=== PATIENT | male | born 1970 | race Caucasian/White ===

== ENCOUNTER 2017-12-05 18:59 | Emergency (ER) | payer SELFPAY ==
[~2017-12-05] VITALS: Ht 172.7 cm; Wt 125.2 kg
[~2017-12-05 18:59] MED LIST: ALBU18HF; ATEN50TA; INSU100V8; LISI40TA; METF10002
[2017-12-05] MEDS ORDERED: ONDANSETRON PF 4 MG/2 ML VIAL. IV ONE (19:15)
[2017-12-05] MEDS ORDERED: IV NORMAL SALINE 1,000ML 1,000 ML IV ONE ×2 (19:15→21:00)
--- NOTE | 2017-12-05 19:21 | PHYS DOC ---
Past History Past Medical History: Asthma, Diabetes, Hypertension Past Surgical History: Cholecystectomy, Other Smoking: Non-smoker Alcohol Use: Occasionally Adult General Chief Complaint Chief Complaint: FLANK PAIN HPI HPI Patient is a 47 year old M who presents with left flank pain with nausea and vomiting. Patient states that this afternoon he started developing severe left flank pain with no associated fevers that radiates around to his left side of the abdomen and describes the pain as sharp shooting 10/10. Patient has a history of multiple kidney stones along with pancreatitis in the past. Patient states this feels like his previous kidney stones. Patient denies any dysuria. She denies any chest pain or shortness of breath. Patient has no other complaints. Review of Systems Review of Systems GEN: Denies fevers, chills, sweats HEENT: Denies blurred vision, sore throat CV: Denies chest pain RESP: Denies shortness of air, cough GI: Left flank pain NEURO: Denies confusion, dizziness MSK: Denies weakness, joint pain/swelling All other systems were reviewed and found to be within normal limits, except as documented in this note. Current Medications Current Medications Current Medications Medications (Trade) Dose Ordered Sig/Marla Start Time Stop Time Status Last Admin Dose Admin Fentanyl Citrate (Fentanyl 2ml Vial) 50 mcg 1X ONCE 12/05/17 19:15 12/05/17 19:16 UNV Ondansetron HCl (Zofran) 4 mg 1X ONCE 12/05/17 19:15 12/05/17 19:16 UNV Sodium Chloride 1,000 ml @ 1,000 mls/hr 1X ONCE 12/05/17 19:15 12/05/17 20:14 UNV Allergies Allergies Allergies Coded Allergies Type Severity Reaction Last Updated Verified NSAIDS (Non-Steroidal Anti-Inflamma Allergy Unknown 09/13/13 Yes Physical Exam Physical Exam GEN.: Mild distress. Alert and oriented. HEENT: Head is normocephalic, atraumatic NECK: Supple. LUNGS: CTAB. HEART: RRR, S1, S2 present. Peripheral pulses intact ABDOMEN: Soft, mild left flank tenderness to palpation, mild left CVA tenderness to palpation, no rebound tenderness, no guarding, no abdominal distention. Positive bowel sounds. EXTREMITIES: Without any cyanosis. NEUROLOGIC: Normal speech, normal tone PSYCHIATRIC: Normal affect, normal mood. SKIN: No ulcerations EKG EKG [] Radiology/Procedures Radiology/Procedures CT scan of the abdomen pelvis without contrast: IMPRESSION: 1. 1 mm nonobstructing right renal stone. There is no evidence of obstructive uropathy. 2. Mild splenomegaly. This may be appropriate for body habitus.[] Course & Med Decision Making Course & Med Decision Making Pertinent Labs and Imaging studies reviewed. (See chart for details) ED course: Patient was seen and examined emergency room basic blood work was ordered along with a CT scan of the abdomen and pelvis without contrast and UA Patient was given 1 L normal saline bolus with 50 g of fentanyl On reevaluation patient was still having pain and given the patient's allergy profile list and with no Dilaudid secondary to shortness or the patient 5 mg of Haldol. Patient states that he did not want to Haldol he's had before and it made him feel very uneasy and did not feel comfortable taking the Haldol this time. I discussed other pain options with the patient which included not limited to ketamine and the patient states he would let her go ahead and try morphine because he states that usually just gets and the headache. I did explain to the patient that the headache from taking morphine is not a true allergic reaction and isn't adverse reaction to the medication and we will remove it from his allergy list. I updated the patient on lab results and CT findings which appears to be renal colic. Since the patient was still having significant amount of pain I recommended admission the hospital to [facility] with urology consult. Patient declined the admission under seen all risks including and disability and states he would like to just go home and follow-up as PCP since he has no insurance and he's had a history of his kidney stones. MDM: After reviewing the chart, CC/HPI/PMH, physical exam, [lab results], [ radiological results], I do not believe the patient has a septic stone warranting further workup and/or admission at this time. Since the patient's having persistent pain I recommended admission to the hospital with urology consult which she declined understanding all the risks including and disability. Explained his symptoms get worse he is more welcome to return.. Additional verbal discharge instructions were provided to the patient and that if symptoms get worse or any new symptoms arise that are worrisome to the patient he is to return to the emergency room immediately [] Dragon Disclaimer Dragon Disclaimer This electronic medical record was generated, in whole or in part, using a voice recognition dictation system. Departure Departure: Impression: Primary Impression: Renal colic Disposition: HOME, SELF-CARE Condition: STABLE Referrals: NON,STAFF (PCP) Patient Instructions: Kidney Stones Additional Instructions: Please follow-up with your family physician in the next one to 2 days and return if symptoms increase MOOKIE ISIDRO DO Dec 05, 2017 19:21
[2017-12-05 19:33] LABS: BASO # 0.1 x10^3/uL (0.0-0.2); BASO % 1 % (0-3); EOS # 0.1 x10^3/uL (0.0-0.7); EOS % 1 % (0-3); HEMATOCRIT 45.6 % (39.0-53.0); HEMOGLOBIN 15.9 g/dL (13.0-17.5); LYMPH # 3.5 x10^3/uL (1.0-4.8); LYMPH % 22 % (24-48); MEAN CORPUSCULAR HEMOGLOBIN 31 pg (25-35); MEAN CORPUSCULAR HGB CONC 35 g/dL (31-37); MEAN CORPUSCULAR VOLUME 90 fL (79-100); MONO # 1.2 x10^3/uL (0.0-1.1); MONO % 8 % (0-9); NEUT # 11.1 x10^3uL (1.8-7.7); NEUT % 69 % (31-73); PLATELET COUNT 307 x10^3/uL (140-400); RED CELL DISTRIBUTION WIDTH 13.3 % (11.5-14.5); WHITE BLOOD COUNT 16.1 x10^3/uL (4.0-11.0)
[2017-12-05 19:47] LABS: ALBUMIN 3.8 g/dL (3.4-5.0); ALBUMIN/GLOBULIN RATIO 0.9 (1.0-1.7); CALCIUM 9.9 mg/dL (8.5-10.1); CREATININE 0.9 mg/dL (0.7-1.3); GFR 90.8; POTASSIUM 3.9 mmol/L (3.5-5.1); TOTAL BILIRUBIN 0.4 mg/dL (0.2-1.0); TOTAL PROTEIN 8.2 g/dL (6.4-8.2)
--- NOTE | 2017-12-05 20:05 | RAD ---
EXAM: Abdomen and pelvis CT without intravenous contrast. HISTORY: Pain. TECHNIQUE: Computed tomographic images of the abdomen and pelvis were obtained without contrast. Multiplanar reformatting was performed. *One or more of the following individualized dose reduction techniques were utilized for this examination: 1. Automated exposure control. 2. Adjustment of the mA and/or kV according to patient size. 3. Use of iterative reconstruction technique. COMPARISON: None. FINDINGS: Evaluation of the lower thorax is unremarkable. No hepatic lesion is seen. The gallbladder is surgically absent. The pancreas, adrenal glands and stomach are unremarkable. The spleen is mildly enlarged, measuring 15.0 cm. There is no evidence of obstructive uropathy. There is a 1 mm nonobstructing stone within the right kidney. No ureteral stone is seen. The urinary bladder is unremarkable. No abnormally thickened or dilated loop of bowel is seen. No pathologically enlarged lymph node is seen. The aorta is normal in caliber. No suspicious osseous lesion is seen. There is degenerative change within the lumbar spine, primarily at the lumbosacral junction. There is associated severe left foraminal stenosis at this level. IMPRESSION: 1. 1 mm nonobstructing right renal stone. There is no evidence of obstructive uropathy. 2. Mild splenomegaly. This may be appropriate for body habitus. Electronically signed by: Cristy Patel MD (12/05/2017 8:02 PM) [facility]
[2017-12-05] MEDS ORDERED: HALOPERIDOL LACT 5 MG/ML VIAL. IVP ONE (20:45)
[2017-12-05 20:53] LABS: BACTERIA,URINE 0 /HPF (0-FEW); BILIRUBIN,URINE NEG (NEG); CLARITY,URINE HAZY; COLOR,URINE PINK; GLUCOSE,URINE 100 mg/dL (NEG); NITRITE,URINE NEG (NEG); RBC,URINE TNTC /HPF (0-2); SQUAMOUS EPITHELIAL CELL,UR OCC /LPF; UROBILINOGEN,URINE 0.2 mg/dL (0.2 mg/dL); WBC,URINE OCC /HPF (0-4)
[2017-12-05] MEDS ORDERED: MORPHINE SULFATE 4 MG/ML DISP.SYRIN. IV ONE (21:00)
[2017-12-05 21:47] VITALS: BP 132/69
[2017-12-05 22:48] LABS: % LYMPHS 20 % (24-48); % MONOS 11 % (0-10); % SEGS 69 % (35-66)
[2017-12-05 22:49] LABS: OVALOCYTES OCC; PLT ESTIMATE ADEQUATE (ADEQUATE); POLYCHROMASIA SLIGHT
== END 2017-12-05 21:50 | disposition home or self-care (01) ==
LOC: ER 18:59
DX: N23 Unspecified renal colic (principal); E11.9 Type 2 diabetes mellitus without complications; I10 Essential (primary) hypertension; J45.909 Unspecified asthma, uncomplicated; Z87.442 Personal history of urinary calculi; Z90.49 Acquired absence of other specified parts of digestive tract; Z88.6 Allergy status to analgesic agent
CPT/HCPCS: 36415; 74176; 80053; 81001; 83690; 85007; 85025; 96361; 96374; 96375; 96376; 99285; J2405; J3010; J7030

== ENCOUNTER 2020-06-12 22:16 | Emergency (ER) | payer SELFPAY ==
[~2020-06-12] VITALS: Ht 172.7 cm; Wt 136.1 kg
[~2020-06-12 22:16] MED LIST changes: -ALBU18HF; +ALBU2.5V8; -METF10002; +METF10007
--- NOTE | 2020-06-12 22:48 | PHYS DOC ---
Past History Past Medical History: Asthma, Diabetes, Hypertension, Kidney Stones, UTI Past Medical History Hx. epididymititis, prostatitis Past Surgical History: Cholecystectomy, Other Smoking: Non-smoker Alcohol Use: None Drug Use: Marijuana General Adult EDM: Chief Complaint: TESTICULAR PAIN OR INJURY HPI: HPI: " I have some pain that radiates to this Lt. nut.. . It kind of feels like a kidney stone or may be prostatitis or maybe epididymitis ... I have had 5 lithotripsy for kidney stones,,, I cannot really tell...".."It hurts bad when I pee..." Patient is a 49 year old male who presents with above hx and complaints of left epididymal pain, left flank pain, perineal pain. Patient states pain been present last couple days but more severe tonight. Patient has previous history of epididymitis and prostatitis. Patient denies any history of STDs. Patient has had episodes of frequent kidney stones 5 kidney stones required lithotripsy. Patient has not noticed any hematuria. Does have pain in left flank that radiates to his left testicle. Does have mild tenderness in epididymis of the left testicle. Rectal exam prostate was boggy swollen and extremely tender. Patient denies any history immunosuppression. No history of specific ill contacts. No history recent travel outside [facility]. Patient denies any history or risks of STDs. Patient does complain of dysuria on urination. Review of Systems: Review of Systems: Constitutional: Denies fever or chills Eyes: Denies change in visual acuity HENT: Denies nasal congestion or sore throat Respiratory: Denies cough or shortness of breath Cardiovascular: Denies chest pain or edema GI: Denies abdominal pain, nausea, vomiting, bloody stools or diarrhea : Complains of dysuria and some epididymis and left testicle discomfort Musculoskeletal: Complains of left flank pain Integument: Denies rash Neurologic: Denies headache, focal weakness or sensory changes Endocrine: Denies polyuria or polydipsia Lymphatic: Denies swollen glands Psychiatric: Denies depression or anxiety Family History: Family History: Noncontributory Current Medications: Current Meds: See nursing for home meds Allergies: Allergies: Allergies Coded Allergies Type Severity Reaction Last Updated Verified gabapentin Allergy Severe Unknown 12/05/17 Yes vancomycin Allergy Intermediate Unknown 12/05/17 Yes NSAIDS (Non-Steroidal Anti-Inflamma Allergy Unknown Unknown 12/05/17 Yes morphine Allergy Unknown Unknown 12/05/17 Yes Physical Exam: PE: Constitutional: Moderate acute distress, non-toxic appearance. [] HENT: Normocephalic, atraumatic, bilateral external ears normal, oropharynx moist, no oral exudates, nose normal. Damon Eyes: PERRLA, EOMI, conjunctiva normal, no discharge. Glasses Neck: Normal range of motion, no tenderness, supple, no stridor. [] Cardiovascular:Heart rate regular rhythm, no murmur [] Lungs & Thorax: Bilateral breath sounds equal apex on auscultation [] Abdomen: Bowel sounds decreased , soft, no tenderness, no masses, no pulsatile masses. Obese. Circumcised male. Testicles descended. Mild tenderness left epididymis and testicle. Some peritoneal tenderness. . Boggy and very tender prostate. No gross blood on rectal exam. Old surgical scar. (Cholecystectomy) Skin: Warm, dry, no erythema, no rash. [] Back: No tenderness, no CVA tenderness. [] Extremities: No tenderness, no cyanosis, no clubbing, ROM intact, no edema. [] Neurologic: Alert and oriented X 3, normal motor function, normal sensory function, no focal deficits noted. DTRs +2 patella and brachial. Psychologic: Affect anxious, judgement normal, mood normal. [] EKG: EKG: [] Radiology/Procedures: Radiology/Procedures: Patient refuses ultrasound of testicle and groin. [][place] [address] IMAGING REPORT Signed PATIENT: ROSE POWELL ACCOUNT: [id number] : 1970 LOCATION: ER AGE: 49 SEX: M EXAM STATUS: REG ER ORD. PHYSICIAN: SOPHIA HAIRSTON MD REASON: pain PROCEDURE: CT ABDOMEN PELVIS WO CONTRAST INDICATION: Reason: pain in the abdomen/ Spl. Instructions: / History: . COMPARISON: December 05, 2017 TECHNIQUE: Axial CT images obtained through the abdomen and pelvis without contrast. One or more of the following individualized dose reduction techniques were utilized for this examination: 1. Automated exposure control; 2. Adjustment of the mA and/or kV according to patient size; 3. Use of iterative reconstruction technique. FINDINGS: There is some fluid within the distal esophagus. Distal esophageal wall appears mildly prominent. Scattered calcific atherosclerosis. Postcholecystectomy changes. No peripancreatic fluid collection. Spleen unremarkable. Mild nodular thickening of the left adrenal gland. No left-sided hydronephrosis. Urinary bladder is partially distended. No right-sided hydronephrosis. High density structure seen at the cecum, could be from post appendectomy changes. No dilated loops of bowel to suggest obstruction. Scoliotic curvature of the spine with degenerative changes. Multilevel central canal and neural foraminal stenosis. IMPRESSION: * No hydronephrosis or radiopaque obstructive ureter stone. * There is some mild prominence of the distal esophageal wall. Could be from lack of distention but would correlate with symptoms to ensure that there is not a pathologic cause such as reflux or esophagitis. Electronically signed by: Lenard Barber MD (06/13/2020 12:33 AM) [id number] DICTATED AND SIGNED BY: LENARD BARBER MD DATE: 06/13/20 0033 CC: SOPHIA HAIRSTON MD; LIZZ KENYON MD ~ Heart Score: Risk Factors: Risk Factors: DM, Current or recent (<one month) smoker, HTN, HLP, family history of CAD, obesity. Risk Scores: Score 0 - 3: 2.5% MACE over next 6 weeks - Discharge Home Score 4 - 6: 20.3% MACE over next 6 weeks - Admit for Clinical Observation Score 7 - 10: 72.7% MACE over next 6 weeks - Early Invasive Strategies Course & Med Decision Making: Course & Med Decision Making Pertinent Labs and Imaging studies reviewed. (See chart for details) Patient follow-up primary care. Patient follow-up urine cultures. Patient is to take Keflex 500 x3 times a day. Take Tylenol ibuprofen for pain. Return if any concerns. Patient informed that since he declined ultrasound of testicle pathology could not be fully evaluated. If recurrent episodes of prostatitis or epididymitis is recommended follow-up with urology. Return if any concerns. Impression: 1. Dysuria-UTI 2. Left testicular discomfort 3. Clinical findings of prostatitis [] Dragon Disclaimer: Dragfawn Disclaimer: This electronic medical record was generated, in whole or in part, using a voice recognition dictation system. Departure Departure: Disposition: 01 DC HOME SELF CARE/HOMELESS Condition: STABLE Referrals: LIZZ KENYON MD (PCP) Scripts Cephalexin (KEFLEX) 500 Mg Capsule 500 MG PO TID for Prostate/ UTI for 14 Days, BOTTLE Prov: SOPHIA HAIRSTON MD 06/13/20 Dragon Disclaimer This chart was dictated in whole or in part using Voice Recognition software in a busy, high-work load, and often noisy Emergency Department environment. It may contain unintended and wholly unrecognized errors or omissions. SOPHIA HAIRSTON MD Jun 12, 2020 22:48
[2020-06-12] MEDS ORDERED: IV RINGERS SOLUTION,LACTATED 1,000 ML IV SCH (23:12)
[2020-06-12] MEDS ORDERED: KETOROLAC 30 MG/ML VIAL. ONE (23:12)
[2020-06-12] MEDS ORDERED: ONDANSETRON PF 4 MG/2 ML VIAL. IVP ONE (23:15)
[2020-06-12] MEDS ORDERED: FAMOTIDINE 20 MG/2 ML VIAL IVP ONE (23:15)
[2020-06-12 23:53] LABS: CREATININE 1.3 mg/dL (0.7-1.3); GFR 58.9; POTASSIUM 3.7 mmol/L (3.5-5.1)
[2020-06-12 23:59] LABS: ALBUMIN 3.5 g/dL (3.4-5.0); DIRECT BILIRUBIN 0.1 mg/dL (0.0-0.2); TOTAL BILIRUBIN 0.2 mg/dL (0.2-1.0); TOTAL PROTEIN 7.8 g/dL (6.4-8.2)
[2020-06-13] LABS: BASO # 0.1 x10^3/uL (0.0-0.2); BASO % 1 % (0-3); EOS # 0.1 x10^3/uL (0.0-0.7); EOS % 1 % (0-3); HEMATOCRIT 44.2 % (39.0-53.0); HEMOGLOBIN 15.2 g/dL (13.0-17.5); LYMPH # 2.7 x10^3/uL (1.0-4.8); LYMPH % 19 % (24-48); MEAN CORPUSCULAR HEMOGLOBIN 31 pg (25-35); MEAN CORPUSCULAR HGB CONC 34 g/dL (31-37); MEAN CORPUSCULAR VOLUME 90 fL (79-100); MONO # 1.2 x10^3/uL (0.0-1.1); MONO % 8 % (0-9); NEUT # 10.4 x10^3uL (1.8-7.7); NEUT % 72 % (31-73); PLATELET COUNT 304 x10^3/uL (140-400); RED CELL DISTRIBUTION WIDTH 12.8 % (11.5-14.5); WHITE BLOOD COUNT 14.5 x10^3/uL (4.0-11.0)
[2020-06-13 00:09] LABS: BARBITURATES NEG (NEG); BENZODIAZEPINES NEG (NEG); CANNABINOIDS POS (NEG); COCAINE NEG (NEG); METHADONE NEG (NEG); OPIATES NEG (NEG); PHENCYCLIDINE NEG (NEG)
[2020-06-13 00:11] LABS: AMPHETAMINE/METHAMPHETAMINE NEG (NEG)
[2020-06-13 00:34] LABS: BILIRUBIN,URINE NEG (NEG); CLARITY,URINE HAZY; COLOR,URINE YELLOW; GLUCOSE,URINE NEG (NEG)
[2020-06-13 00:35] LABS: BACTERIA,URINE FEW /HPF (0-FEW); NITRITE,URINE NEG (NEG); SQUAMOUS EPITHELIAL CELL,UR MOD /LPF; UROBILINOGEN,URINE 0.2 mg/dL (0.2 mg/dL)
--- NOTE | 2020-06-13 00:36 | RAD ---
INDICATION: Reason: pain in the abdomen/ Spl. Instructions: / History: . COMPARISON: December 05, 2017 TECHNIQUE: Axial CT images obtained through the abdomen and pelvis without contrast. One or more of the following individualized dose reduction techniques were utilized for this examination: 1. Automated exposure control; 2. Adjustment of the mA and/or kV according to patient size; 3. Use of iterative reconstruction technique. FINDINGS: There is some fluid within the distal esophagus. Distal esophageal wall appears mildly prominent. Scattered calcific atherosclerosis. Postcholecystectomy changes. No peripancreatic fluid collection. Spleen unremarkable. Mild nodular thickening of the left adrenal gland. No left-sided hydronephrosis. Urinary bladder is partially distended. No right-sided hydronephrosis. High density structure seen at the cecum, could be from post appendectomy changes. No dilated loops of bowel to suggest obstruction. Scoliotic curvature of the spine with degenerative changes. Multilevel central canal and neural foraminal stenosis. IMPRESSION: * No hydronephrosis or radiopaque obstructive ureter stone. * There is some mild prominence of the distal esophageal wall. Could be from lack of distention but would correlate with symptoms to ensure that there is not a pathologic cause such as reflux or esophagitis. Electronically signed by: Pete Salas MD (06/13/2020 12:33 AM) [id number]
--- NOTE | 2020-06-13 00:37 | RAD ---
INDICATION: Reason: pain / Spl. Instructions: / History: COMPARISON: December 05, 2017 IMPRESSION: 4 views of chest and abdomen obtained. Prominence of the bilateral pulmonary hilum is again seen. Cardiac silhouette similar to prior. No new region of airspace consolidation. Degenerative changes the spine with scoliotic curvature. Air scattered throughout large and small bowel in a grossly nonobstructive pattern. Electronically signed by: Pete Salas MD (06/13/2020 12:34 AM) [id number]
[2020-06-13] MEDS ORDERED: metroNIDAZOLE 500 MG TABLET PO ONE (01:00)
[2020-06-13] MEDS ORDERED: ONDANSETRON PF 4 MG/2 ML VIAL. IVP ONE (01:00)
[2020-06-13] MEDS ORDERED: AZITHROMYCIN 250 MG TABLET. PO ONE (01:00)
[2020-06-13] MEDS ORDERED: IV NORMAL SALINE 50ML 50 ML ONE (01:03)
[2020-06-13] MEDS ORDERED: cefTRIAXone SODIUM 1 GM VIAL ONE (01:03)
[2020-06-13 01:06] VITALS: BP 139/89
[2020-06-13] MEDS ORDERED: CEPH-264 PO (01:17)
== END 2020-06-13 01:21 | disposition home or self-care (01) ==
LOC: ER 22:16
DX: N39.0 Urinary tract infection, site not specified (principal); N50.812 Left testicular pain; R30.0 Dysuria; N41.9 Inflammatory disease of prostate, unspecified; R10.2 Pelvic and perineal pain; R10.9 Unspecified abdominal pain; F12.90 Cannabis use, unspecified, uncomplicated; Z90.49 Acquired absence of other specified parts of digestive tract; Z88.1 Allergy status to other antibiotic agents; Z88.6 Allergy status to analgesic agent; Z88.8 Allergy status to other drugs, medicaments and biological substances
CPT/HCPCS: 36415; 74022; 74176; 80048; 80076; 80307; 81001; 82550; 83690; 84484; 85025; 85610; 85730; 87086; 96361; 96372; 96374; 96375; 96376; 99285; J0456; J0696; J2405; J3010; J3490; J7120

== ENCOUNTER 2020-06-20 17:24 | Emergency (ER) | payer SELFPAY ==
[~2020-06-20] VITALS: Ht 172.7 cm; Wt 134.1 kg
[~2020-06-20 17:24] MED LIST changes: +CEPH-264 PO
--- NOTE | 2020-06-20 17:46 | PHYS DOC ---
Past History Past Medical History: Asthma, Diabetes, Hypertension, Kidney Stones, Prostatitis, UTI Past Surgical History: Appendectomy, Cholecystectomy, Other Additional Past Surgical Histo: LITHOTRIPSY, ABSCESS ON BACK Smoking: Non-smoker Alcohol Use: None Drug Use: Marijuana General Adult EDM: Chief Complaint: TESTICULAR PAIN OR INJURY HPI: HPI: "...I got a lot better with the antibiotic... but the pain became worse again today.. It in my Lt lower abdomen... ... it radiates or goes into this Lt. lower groin, epididymis and testicle..." Patient is a 49 year old male who presents with the pain in left lower abdomen and groin. Patient states area of the epididymis and left testicle and groin are hurting again. Is not quite like previous kidney stones. States more like epididymitis and prostatitis he has had before except for the groin pain and lower left quadrant. The patient reportedly has had previous colonoscopy with no findings of colitis. Patient states he has not noticed any penile discharge or blood.. Patient was seen on 06/12/[address] without contrast that time and no findings of hydronephrosis or other findings consistent with kidney stone found. Patient returns tonight with what he describes as severe pain. Similar to previous episode on 06/12. Reviewed prior note and history with patient. Patient has had previous history of prostatitis, epididymitis is an renal stones. Review of Systems: Review of Systems: Constitutional: Subjective complaints of fever Eyes: Denies change in visual acuity HENT: Denies nasal congestion or sore throat Respiratory: Denies cough or shortness of breath Cardiovascular: Denies chest pain or edema GI: Complaints of Lt. lower abdominal pain, . Pt. complaints pain that radiates to L.t testicle are. Pt. has mild nausea, vomiting, bloody stools or diarrhea : Complailnts of dysuria Musculoskeletal: Denies back pain or joint pain Integument: Denies rash Neurologic: Denies headache, focal weakness or sensory changes Endocrine: Denies polyuria or polydipsia Lymphatic: Denies swollen glands Psychiatric: Denies depression or anxiety Family History: Family History: Noncontributory to presentation Current Medications: Current Meds: See nursing for home meds Allergies: Allergies: Allergies Coded Allergies Type Severity Reaction Last Updated Verified gabapentin Allergy Severe Unknown 12/05/17 Yes vancomycin Allergy Intermediate Unknown 12/05/17 Yes NSAIDS (Non-Steroidal Anti-Inflamma Allergy Unknown Unknown 12/05/17 Yes morphine Allergy Unknown Unknown 12/05/17 Yes Physical Exam: PE: Constitutional: Moderate acute distress, non-toxic appearance. [] HENT: Normocephalic, atraumatic, bilateral external ears normal, oropharynx moist, no oral exudates, nose normal. [] Eyes: PERRLA, EOMI, conjunctiva normal, no discharge. [] Neck: Normal range of motion, no tenderness, supple, no stridor. [] Cardiovascular:Heart rate regular rhythm, no murmur [] Lungs & Thorax: Bilateral breath sounds clear to auscultation [] Abdomen: Bowel sounds normal, soft, left lower quadrant tenderness, no masses, no pulsatile masses. Obese. Small umbilicus hernia. Has old cholecystectomy and appendectomy scars. Circumcised male. No penile discharge. Mild left epididymis tenderness. Does have hydroceles.. Distended abdomen. Obese Skin: Warm, dry, no erythema, no rash. [] Back: No tenderness, no CVA tenderness. [] Extremities: No tenderness, no cyanosis, no clubbing, ROM intact, no edema. No cording. Neurologic: Alert and oriented X 3, normal motor function, normal sensory function, no focal deficits noted. [] Psychologic: Affect anxious, judgement normal, mood normal. [] EKG: EKG: [] Radiology/Procedures: Radiology/Procedures: [address] [address] IMAGING REPORT Signed PATIENT: ROSE POWELL ACCOUNT: [id number] : 1970 LOCATION: ER AGE: 49 SEX: M EXAM STATUS: REG ER ORD. PHYSICIAN: SOPHIA HAIRSTON MD REASON: pain, OMNI 300, 75ml & OMNI 240, 30ml PROCEDURE: CT ABD PELV W/ORAL&IV CONTRAST EXAM: CT Abdomen and Pelvis with IV contrast CLINICAL HISTORY: Abdominal pain COMPARISON: 06/12/20 12/05/2017 TECHNIQUE: Helical CT of the abdomen and pelvis was performed following the administration of IV contrast. Axial, coronal and sagittal reformatted images were generated. ---PQRS compliance statement - One or more of the following individualized dose reduction techniques were utilized for this study: 1. Automated exposure control 2. Adjustment of the mA and/or kV according to patient size 3. Use of iterative reconstruction technique--- FINDINGS: Lower chest: Lung bases are clear Abdomen and pelvis: Liver and biliary system: Hepatic hypoattenuation likely fatty liver. Liver measures 22.2 cm in length. Accounting for postcholecystectomy change, no biliary ductal dilatation. Spleen: Unremarkable Pancreas: Unremarkable Adrenal glands: Unremarkable Kidneys: Symmetric nephrograms. No focal renal lesion. No hydronephrosis. No hydroureter. Lymph nodes/retroperitoneum: No abdominal pelvic lymphadenopathy. Vessels: Aortic calcifications are seen. Bowel/Peritoneal cavity: Moderate colonic stool content is seen. There has been an appendectomy. No small or large bowel dilatation. No bowel obstruction. No abdominal or pelvic ascites. Abdominal wall: Trace fat-containing periumbilical hernia. Bladder: Unremarkable Bones: Leftward curvature of the lumbar spine. Degenerative changes of spine are seen. IMPRESSION: 1. Hepatomegaly. Hepatic hypoattenuation likely fatty liver. 2. Accounting for postcholecystectomy change, no biliary ductal dilatation. 3. No evidence for bowel obstruction. 4. Trace fat-containing periumbilical hernia. 5. Moderate colonic stool content can be correlated for possible constipation. Electronically signed by: Erick Reich MD (06/20/2020 9:00 PM) [facility] DICTATED AND SIGNED BY: ERICK REICH MD DATE: 06/20/202099 CC: SOPHIA HAIRSTON MD; LIZZ KENYON MD ~ [][place] [address] IMAGING REPORT Signed PATIENT: ROSE POWELL ACCOUNT: [id number] : 1970 LOCATION: ER AGE: 49 SEX: M EXAM STATUS: REG ER ORD. PHYSICIAN: SOPHIA HAIRSTON MD REASON: pain scrotal, Sujata is aware. PROCEDURE: TESTICULAR/SCROTUM Exam: Ultrasound scrotum Indication: Pain, scrotum Technique: Real-time grayscale and color Doppler images of the scrotum were obtained by the department silk screen printer machine. Comparisons: None FINDINGS: Right testicle measures 4.7 x 3.3 x 2.4 cm. Left testicle measures 4.0 x 2.8 x 2.6 cm. There is a left epididymal cyst measuring approximately 9 mm. Vascular flow identified within the testicles bilaterally. Small bilateral hydrocele IMPRESSION: 1. Normal sonographic appearance of the testicles. No evidence for testicular torsion. 2. Small bilateral hydroceles. Electronically signed by: Brittni Marrufo MD (06/20/2020 7:17 PM) [id number] DICTATED AND SIGNED BY: BRITTNI MARRUFO MD DATE: 06/20/201916 CC: SOPHIA HAIRSTON MD; LIZZ KENYON MD ~ Heart Score: Risk Factors: Risk Factors: DM, Current or recent (<one month) smoker, HTN, HLP, family history of CAD, obesity. Risk Scores: Score 0 - 3: 2.5% MACE over next 6 weeks - Discharge Home Score 4 - 6: 20.3% MACE over next 6 weeks - Admit for Clinical Observation Score 7 - 10: 72.7% MACE over next 6 weeks - Early Invasive Strategies Course & Med Decision Making: Course & Med Decision Making Pertinent Labs and Imaging studies reviewed. (See chart for details) Patient to continue his Keflex 500 mg 3 times a day, continue the Flagyl 500 mg 3 times a day. Patient take Tylenol for pain. For marked pain may take Percocet up to 4 times a day. Patient given a copy of his CT without contrast, his CT with contrast and his ultrasound results tonight. Patient recommended follow-up with urology since this appears to be the most likely source of his pain. Some consideration for change in antibiotics may be warranted. Follow-up pending cultures. No acute surgical pathology noted tonight. Impression: 1. Left lower abdomen pain 2. Left epididymis and testicle pain.- 3. History of a boggy tender prostate on last ED visit-suspect prostatitis [] Dragon Disclaimer: Dragon Disclaimer: This electronic medical record was generated, in whole or in part, using a voice recognition dictation system. Departure Departure: Referrals: LIZZ KENYON MD (PCP) Scripts Oxycodone Hcl/Acetaminophen (PERCOCET 5-325 MG TABLET ) 1 Each Tablet 1 TAB PO PRN Q6HRS PRN for PAIN, #30 TAB Prov: SOPHIA HAIRSTON MD 06/20/20 Metronidazole (FLAGYL) 500 Mg Tablet 500 MG PO TID for Uti for 30 Days, #90 TAB Prov: SOPHIA HAIRSTON MD 06/20/20 Cephalexin (KEFLEX) 500 Mg Capsule 500 MG PO TID for Prostatits, #30 BOTTLE Prov: SOPHIA HAIRSTON MD 06/20/20 Dragon Disclaimer This chart was dictated in whole or in part using Voice Recognition software in a busy, high-work load, and often noisy Emergency Department environment. It may contain unintended and wholly unrecognized errors or omissions. SOPHIA HAIRSTON MD Jun 20, 2020 17:46
[2020-06-20] MEDS ORDERED: IV RINGERS SOLUTION,LACTATED 1,000 ML IV SCH (17:49)
[2020-06-20] MEDS ORDERED: IOHEXOL 300 MG/ML 75 ML VIAL. IV ONE (18:00)
[2020-06-20] MEDS ORDERED: FAMOTIDINE 20 MG/2 ML VIAL IVP ONE (18:00)
[2020-06-20] MEDS ORDERED: ONDANSETRON PF 4 MG/2 ML VIAL. IVP ONE (18:00)
[2020-06-20] MEDS ORDERED: IOHEXOL 240 MG/ML 50ML VIAL. PO ONE (18:15)
[2020-06-20 18:37] LABS: BASO # 0.1 x10^3/uL (0.0-0.2); BASO % 1 % (0-3); EOS # 0.1 x10^3/uL (0.0-0.7); EOS % 1 % (0-3); HEMATOCRIT 44.8 % (39.0-53.0); HEMOGLOBIN 15.4 g/dL (13.0-17.5); LYMPH # 2.5 x10^3/uL (1.0-4.8); LYMPH % 17 % (24-48); MEAN CORPUSCULAR HEMOGLOBIN 31 pg (25-35); MEAN CORPUSCULAR HGB CONC 34 g/dL (31-37); MEAN CORPUSCULAR VOLUME 90 fL (79-100); MONO # 0.9 x10^3/uL (0.0-1.1); MONO % 6 % (0-9); NEUT # 11.2 x10^3uL (1.8-7.7); NEUT % 76 % (31-73); PLATELET COUNT 328 x10^3/uL (140-400); RED BLOOD COUNT 4.97 x10^6/uL (4.30-5.70); RED CELL DISTRIBUTION WIDTH 12.9 % (11.5-14.5); WHITE BLOOD COUNT 14.8 x10^3/uL (4.0-11.0)
[2020-06-20 18:42] LABS: BILIRUBIN,URINE NEG (NEG); CLARITY,URINE CLEAR; COLOR,URINE COLORLESS; GLUCOSE,URINE 100 mg/dL (NEG)
[2020-06-20 18:43] LABS: NITRITE,URINE NEG (NEG); UROBILINOGEN,URINE 0.2 mg/dL (0.2 mg/dL)
[2020-06-20 18:44] LABS: CALCIUM 10.7 mg/dL (8.5-10.1); CREATININE 0.9 mg/dL (0.7-1.3); GFR 90.1; POTASSIUM 3.8 mmol/L (3.5-5.1)
[2020-06-20 18:46] LABS: BACTERIA,URINE MOD /HPF (0-FEW); SQUAMOUS EPITHELIAL CELL,UR MOD /LPF
[2020-06-20 18:50] LABS: ALBUMIN 3.5 g/dL (3.4-5.0); DIRECT BILIRUBIN 0.1 mg/dL (0.0-0.2); TOTAL BILIRUBIN 0.2 mg/dL (0.2-1.0); TOTAL PROTEIN 7.8 g/dL (6.4-8.2)
--- NOTE | 2020-06-20 19:14 | RAD ---
EXAM: Frontal view of the chest, AP views of the abdomen in upright and supine positions. CLINICAL INDICATION: Abdominal pain. COMPARISON: None. FINDINGS and IMPRESSION: The heart is not enlarged. Mediastinal and hilar contours are normal. No focal parenchymal airspace opacity. No pleural effusion or pneumothorax. No abnormal small or large bowel dilatation. Moderate colonic stool content can be correlated for possible constipation. No abnormal soft tissue mass effect. No suspicious calcifications are seen. No free intraperitoneal gas. Cholecystectomy clips are seen. Electronically signed by: Erick Sepulveda MD (06/20/2020 7:11 PM) YAM[facility]
--- NOTE | 2020-06-20 19:20 | RAD ---
Exam: Ultrasound scrotum Indication: Pain, scrotum Technique: Real-time grayscale and color Doppler images of the scrotum were obtained by the department boxing trainer. Comparisons: None FINDINGS: Right testicle measures 4.7 x 3.3 x 2.4 cm. Left testicle measures 4.0 x 2.8 x 2.6 cm. There is a left epididymal cyst measuring approximately 9 mm. Vascular flow identified within the testicles bilaterally. Small bilateral hydrocele IMPRESSION: 1. Normal sonographic appearance of the testicles. No evidence for testicular torsion. 2. Small bilateral hydroceles. Electronically signed by: Brittni Kaiser MD (06/20/2020 7:17 PM) [id number]
[2020-06-20] MEDS ORDERED: IV NORMAL SALINE 50ML 50 ML ONE (20:24)
[2020-06-20] MEDS ORDERED: cefTRIAXone SODIUM 1 GM VIAL ONE (20:24)
--- NOTE | 2020-06-20 21:03 | RAD ---
EXAM: CT Abdomen and Pelvis with IV contrast CLINICAL HISTORY: Abdominal pain COMPARISON: 06/12/20 12/05/2017 TECHNIQUE: Helical CT of the abdomen and pelvis was performed following the administration of IV contrast. Axial, coronal and sagittal reformatted images were generated. ---PQRS compliance statement - One or more of the following individualized dose reduction techniques were utilized for this study: 1. Automated exposure control 2. Adjustment of the mA and/or kV according to patient size 3. Use of iterative reconstruction technique--- FINDINGS: Lower chest: Lung bases are clear Abdomen and pelvis: Liver and biliary system: Hepatic hypoattenuation likely fatty liver. Liver measures 22.2 cm in length. Accounting for postcholecystectomy change, no biliary ductal dilatation. Spleen: Unremarkable Pancreas: Unremarkable Adrenal glands: Unremarkable Kidneys: Symmetric nephrograms. No focal renal lesion. No hydronephrosis. No hydroureter. Lymph nodes/retroperitoneum: No abdominal pelvic lymphadenopathy. Vessels: Aortic calcifications are seen. Bowel/Peritoneal cavity: Moderate colonic stool content is seen. There has been an appendectomy. No small or large bowel dilatation. No bowel obstruction. No abdominal or pelvic ascites. Abdominal wall: Trace fat-containing periumbilical hernia. Bladder: Unremarkable Bones: Leftward curvature of the lumbar spine. Degenerative changes of spine are seen. IMPRESSION: 1. Hepatomegaly. Hepatic hypoattenuation likely fatty liver. 2. Accounting for postcholecystectomy change, no biliary ductal dilatation. 3. No evidence for bowel obstruction. 4. Trace fat-containing periumbilical hernia. 5. Moderate colonic stool content can be correlated for possible constipation. Electronically signed by: Erick Sepulveda MD (06/20/2020 9:00 PM) YAMILETH
[2020-06-20] MEDS ORDERED: METR500T PO (22:07)
[2020-06-20] MEDS ORDERED: OXYC1TAB15 PO (22:07)
[2020-06-20] MEDS ORDERED: CEPH-264 PO (22:07)
[2020-06-20 22:15] VITALS: BP 137/87
== END 2020-06-20 22:20 | disposition home or self-care (01) ==
LOC: ER 17:24
DX: N45.1 Epididymitis (principal); R10.32 Left lower quadrant pain; J45.909 Unspecified asthma, uncomplicated; E11.9 Type 2 diabetes mellitus without complications; I10 Essential (primary) hypertension; Z87.442 Personal history of urinary calculi; Z87.440 Personal history of urinary (tract) infections; Z90.89 Acquired absence of other organs; Z90.49 Acquired absence of other specified parts of digestive tract; Z88.8 Allergy status to other drugs, medicaments and biological substances; Z88.1 Allergy status to other antibiotic agents; Z88.6 Allergy status to analgesic agent; Z88.5 Allergy status to narcotic agent
CPT/HCPCS: 36415; 74022; 74177; 76870; 80048; 80076; 81001; 82550; 83605; 83690; 85025; 85610; 85730; 86140; 87040; 87086; 96361; 96365; 96367; 96372; 96375; 99285; J0696; J2405; J3010; J3490; J7120; Q9966; Q9967; 96376

== ENCOUNTER 2020-06-30 17:34 | Emergency (ER) | payer SELFPAY ==
[~2020-06-30] VITALS: Ht 172.7 cm; Wt 134.1 kg
[~2020-06-30 17:34] MED LIST changes: +METR500T PO; +OXYC1TAB15 PO
[2020-06-30] MEDS ORDERED: HYDROmorphone PF 1 MG/ML DISP.SYRIN IVP ONE (19:15)
--- NOTE | 2020-06-30 19:15 | PHYS DOC ---
Past History Past Medical History: Asthma, Diabetes, Hypertension, Kidney Stones, Prostatitis, UTI (JOHNNIE BOYD APRN) Past Surgical History: Appendectomy, Cholecystectomy, Other Additional Past Surgical Histo: LITHOTRIPSY (JOHNNIE BOYD APRN) Smoking: Non-smoker Alcohol Use: None Drug Use: Marijuana (JOHNNIE BOYD APRN) Adult General Chief Complaint Chief Complaint: ABDOMINAL PAIN HPI HPI Patient is a 49 year old male who presents with request to have his pain medication refilled. Patient states that he was given pain medications 10 days ago and does not have an appointment to see his follow-up physician until 3 D 2019. Patient states he was given 30 Percocets and wishes to have that refilled. Patient states that he continues to have the same testicular pain without change, patient states he had a full work-up to include CAT scan and sonogram, patient states he does not wish to have those done again as nothing has changed and he now has an appointment to see a urologist, patient states he is just here for a prescription for pain medicine. Patient denies any new symptoms, patient denies any recent fever chills, visual changes, nasal congestion, cough, shortness of breath, chest pain, abdominal pain, nausea, vomiting, diarrhea. Patient denies any problems urinating or new urinary symptoms. Patient denies any back pains, skin rashes, headaches, swollen gland s, depressions or anxieties. Patient states that he had a recent exposure to the COVID-19 virus and has an appointment to be tested tomorrow, patient does not wish to be tested for the COVID-19 virus today. Patient denies any symptoms for the COVID-19 virus. Patient states that he would have gone to see his doctor today but his doctor refused to see him because he had been exposed to the COVID-19 virus. Patient states that his primary care physician advised him to come to the emergency department for prescriptions for more pain medicines. (JOHNNIE BOYD APRN) Review of Systems Review of Systems Constitutional: Denies fever or chills Eyes: Denies change in visual acuity, redness, or eye pain HENT: Denies nasal congestion or sore throat Respiratory: Denies cough or shortness of breath Cardiovascular: No additional information not addressed in HPI GI: Denies abdominal pain, nausea, vomiting, bloody stools or diarrhea : Denies dysuria or hematuria, ongoing left testicular pain without change from previous examination 10 days ago, awaiting urology appointment on July 16, 2020 Musculoskeletal: Denies back pain or joint pain Integument: Denies rash or skin lesions Neurologic: Denies headache, focal weakness or sensory changes Endocrine: Denies polyuria or polydipsia All other systems were reviewed and found to be within normal limits, except as documented in this note. (JOHNNIE BOYD APRN) Current Medications Current Medications Current Medications Medications (Trade) Dose Ordered Sig/Marla Start Time Stop Time Status Last Admin Dose Admin Fentanyl Citrate (Fentanyl 2ml Vial) 75 mcg 1X ONCE 06/30/20 18:30 06/30/20 18:31 DC 06/30/20 18:23 75 MCG (JOHNNIE BOYD APRN) Allergies Allergies Allergies Coded Allergies Type Severity Reaction Last Updated Verified gabapentin Allergy Severe Unknown 12/05/17 Yes vancomycin Allergy Intermediate Unknown 12/05/17 Yes NSAIDS (Non-Steroidal Anti-Inflamma Allergy Unknown Unknown 12/05/17 Yes morphine Allergy Unknown Unknown 12/05/17 Yes (JOHNNIE BOYD APRN) Physical Exam Physical Exam Constitutional: Well developed, well nourished, no acute distress, non-toxic appearance. HENT: Normocephalic, atraumatic, bilateral external ears normal, oropharynx moist, no oral exudates, nose normal. Eyes: PERRLA, EOMI, conjunctiva normal, no discharge. Neck: Normal range of motion, no tenderness, supple, no stridor. Cardiovascular:Heart rate regular rhythm, no murmur Lungs & Thorax: Bilateral breath sounds clear to auscultation Abdomen: Bowel sounds normal, soft, no tenderness, no masses, no pulsatile masses. Skin: Warm, dry, no erythema, no rash. Back: No tenderness, no CVA tenderness. Extremities: No tenderness, no cyanosis, no clubbing, ROM intact, no edema. Neurologic: Alert and oriented X 3, normal motor function, normal sensory function, no focal deficits noted. Psychologic: Affect normal, judgement normal, mood normal. : Patient refused testicular exam stating that he has already had this examination done and x-rays performed and CTs performed and sonogram was p erformed and has an follow-up appointment on July 16, patient states he just wants to get a prescription for his medications and to go home. (JOHNNIE BOYD APRN) Current Patient Data Vital Signs Vital Signs Date Time Temp Pulse Resp B/P (MAP) Pulse Ox O2 Delivery O2 Flow Rate FiO2 06/30/20 19:00 99 16 172/76 (108) 98 Room Air 06/30/20 17:42 98.1 (JOHNNIE BOYD APRN) EKG EKG [] (JOHNNIE BOYD APRN) Radiology/Procedures Radiology/Procedures [] (JOHNNIE BOYD APRN) Heart Score Risk Factors: Risk Factors: DM, Current or recent (<one month) smoker, HTN, HLP, family history of CAD, obesity. Risk Scores: Risk Factors: DM, Current or recent (<one month) smoker, HTN, HLP, family history of CAD, obesity. (JOHNNIE BOYD APRN) Course & Med Decision Making Course & Med Decision Making Pertinent Labs and Imaging studies reviewed. (See chart for details) 49-year-old male presents emergency department requesting medication refill for his ongoing left testicular pain. Patient states that he was given 30 tablets of Percocet 10 days ago and has since run out, patient states that he has an appointment on July 16 and wishes to have a prescription for pain medicine to tide him over until then. Discussed with patient that emergency department is an inappropriate place to seek pain control, however related to patient's recent diagnoses and compliance with follow-up with a urologist. Patient was given IV fentanyl which brought his pain from a 10/10 down to a 7/10 on a 1-10 pain scale. Patient was subsequently given 1 mg of Dilaudid which brought his pain down to a 4/10 on a 1-10 pain scale which the patient states is tolerable for him. Discussed with ED attending Dr. Cantrell who agreed that the patient could have 10 more Percocets for prescription and the patient is to follow-up with his primary care physician for pain control and or follow-up with the pain clinic. Discussed ED attending recommendations with patient, patient amenable to this plan, patient will be given a prescription for 10 tablets of 5/325 mg Percocets, patient gave verbal understanding of prescription use, return to ER concerns, patient have no further questions or concerns, patient discharged home without incident. (JOHNNIE BOYD APRN) Dragon Disclaimer Dragon Disclaimer This electronic medical record was generated, in whole or in part, using a voice recognition dictation system. (JOHNNIE BOYD APRN) Attending Co-Sign The patient was seen and interviewed as well as examined at the bedside. The chart was reviewed. The case was discussed. Agree with the plan of care. (CHRISTOPHER CANTRELL DO) Departure Departure: Impression: Primary Impression: Encounter for medication refill Additional Impression: Testicular pain, right Disposition: 01 DC HOME SELF CARE/HOMELESS Condition: IMPROVED Referrals: LIZZ KENYON MD (PCP) Patient Instructions: Medication Refill, Emergency Department Additional Instructions: EMERGENCY DEPARTMENT GENERAL DISCHARGE INSTRUCTIONS Thank you for coming to [facility] (ED) today and trusting us with you care. We trust that you had a positivie experience in our Emergency Department. If you wish to speak to the department management, you may call the director at [phone]. YOUR FOLLOW UP INSTRUCTIONS ARE FOLLOWS: 1. Do you have a private Doctor? If you do not have a private doctor, please ask for a resource list of physicians or clinics that may be able to assist you with follow up care. 2. The Emergency Physician has interpreted your x-rays. The X-Ray specialist will also review them. If there is a change in the findings, you will be notified in 48 hours when at all possible. 3. A lab test or culture has been done, your results will be reviewed and you will be notified if you need a change in treatment. ADDITIONAL INSTRUCTIONS AND INFORMATION: 1. Your care today has been supervised by a physician who is specially trained in emergency care. Many problems require more than one evaluation for a complete diagnosis and treatment. We recommend that you schedule your follow up appointment as recommended to ensure complete treatment of you illness or injury. If you are unable to obtain follow up care and continue to have a problem, or if your condition worsens, we recommend that you return to the ED. 2. We are not able to safely determine your condition over the phone nor are we able to give sound medical advice over the phone. For these safety reasons, if you call for medical advice we will ask you to come to the ED for further evaluation. 3. If you have any questions regarding these discharge instructions please call the ED at [phone]. SAFETY INFORMATION: In the interest of safety, wellness, and injury prevention; we encourage you to wear your sealbelt, if you smoke; quite smoking, and we encourage family to use a protective helmet for bicycling and other sporting events that present an increased risk for head injury. IF YOUR SYMPTOMS WORSEN OR NEW SYMPTOMS DEVELOP, OR YOU HAVE CONCERNS ABOUT YOUR CONDITION; OR IF YOUR CONDITION WORSENS WHILE YOU ARE WAITING FOR YOUR FOLLOW UP APPOINTMENT; EITHER CONTACT YOUR PRIMARY CARE DOCTOR, THE PHYSICIAN WHOSE NAME AND NUMBER YOU WERE GIVEN, OR RETURN TO THE ED IMMEDIATELY. Scripts Oxycodone HCl/Acetaminophen (Percocet 5-325 mg Tablet) 1 Each Tablet 1 TAB PO PRN BID PRN for PAIN MDD 2 Tablet(s) for 5 Days, #10 TAB 0 Refills Prov: JOHNNIE BOYD APRN 06/30/20 Problem Qualifiers JOHNNIE BOYD APRN Jun 30, 2020 19:15 CHRISTOPHER CANTRELL DO Jul 01, 2020 05:45
[2020-06-30 20:44] VITALS: BP 151/85
[2020-06-30] MEDS ORDERED: OXYC-325 PO (21:17)
== END 2020-06-30 21:36 | disposition home or self-care (01) ==
LOC: ER 17:34
DX: N50.811 Right testicular pain (principal); Z76.0 Encounter for issue of repeat prescription; J45.909 Unspecified asthma, uncomplicated; E11.9 Type 2 diabetes mellitus without complications; I10 Essential (primary) hypertension; Z87.442 Personal history of urinary calculi; Z87.440 Personal history of urinary (tract) infections; Z90.49 Acquired absence of other specified parts of digestive tract; Z90.89 Acquired absence of other organs; Z88.1 Allergy status to other antibiotic agents; Z88.5 Allergy status to narcotic agent; Z88.6 Allergy status to analgesic agent; Z88.8 Allergy status to other drugs, medicaments and biological substances
CPT/HCPCS: 96374; 96375; 99285; J1170; J3010

== ENCOUNTER 2020-07-25 19:35 | Emergency (ER) | payer SELFPAY ==
[~2020-07-25] VITALS: Ht 172.7 cm; Wt 135.1 kg
[~2020-07-25 19:35] MED LIST changes: +OXYC-325 PO
--- NOTE | 2020-07-25 19:59 | PHYS DOC ---
Past History Past Medical History: Asthma, Diabetes, Hypertension, Kidney Stones, Prostatitis, UTI Past Surgical History: Appendectomy, Cholecystectomy, Other Additional Past Surgical Histo: LITHOTRIPSY Smoking: Non-smoker Alcohol Use: None Drug Use: Marijuana Adult General Chief Complaint Chief Complaint: GROIN PAIN HPI HPI Patient is a 49-year-old male who comes emergency department for pain control. Patient states he called his urologist who told him to come straight to the emergency department for his breakthrough pain as they are unable to treat him for his chronic pains. Patient states that he has been worked up significantly by both GI doctors and urology doctors, currently being treated by urology clinic for his chronic abdomen and left lower groin and left testicle pains. Gil hawthorne states that they are currently treating him with a low-dose of amitriptyline for his chronic pains. Patient states that he tried taking this dose tonight and it did not relieve his pain, he subsequently called his doctors at who told him to come here to [facility] emergency department for pain control. Patient states this is the same pain he has always had, this is the same pain that he has been dealing with for quite some time now, patient denies any change in his symptoms. Patient states he hurts all the time and at other times he hurts worse, patient states that he has not had any real pain control for several months. Review of Systems Review of Systems 14 body systems of review of systems have been reviewed. See HPI for pertinent positives and negative responses, otherwise all other systems are negative, nonpertinent or noncontributory. Current Medications Current Medications Patient states he takes five 325 mg Percocets every 6 hours as needed for pain, patient states he takes an unknown dose of amitriptyline as well for pain. Patient denies taking any other medications at home. Allergies Allergies Allergies Coded Allergies Type Severity Reaction Last Updated Verified gabapentin Allergy Severe Unknown 12/05/17 Yes vancomycin Allergy Intermediate Unknown 12/05/17 Yes NSAIDS (Non-Steroidal Anti-Inflamma Allergy Unknown Unknown 12/05/17 Yes morphine Allergy Unknown Unknown 12/05/17 Yes Physical Exam Physical Exam Constitutional: Well developed, well nourished, no acute distress, non-toxic appearance. Patient is complaint of pain outweighs his physical appearance and examination. HENT: Normocephalic, atraumatic, bilateral external ears normal, oropharynx moist, no oral exudates, nose normal. Eyes: PERRLA, EOMI, conjunctiva normal, no discharge. Neck: Normal range of motion, no tenderness, supple, no stridor. Cardiovascular:Heart rate regular rhythm, no murmur Lungs & Thorax: Bilateral breath sounds clear to auscultation Abdomen: Bowel sounds normal, soft, no tenderness, no masses, no pulsatile masses. Skin: Warm, dry, no erythema, no rash. Back: No tenderness, no CVA tenderness. Extremities: No tenderness, no cyanosis, no clubbing, ROM intact, no edema. Neurologic: Alert and oriented X 3, normal motor function, normal sensory function, no focal deficits noted. Psychologic: Affect normal, judgement normal, mood normal. Patient is anxious at this time, currently asking for narcotic pain medicines. Patient is exhibiting drug-seeking behavior related to asking for specific narcotics during exam, patient stating that his primary care physicians and physician specifically treating his chronic pains told him to come specifically to this emergency department for pain control. EKG EKG [] Radiology/Procedures Radiology/Procedures [] Heart Score Risk Factors: Risk Factors: DM, Current or recent (<one month) smoker, HTN, HLP, family hi story of CAD, obesity. Risk Scores: Risk Factors: DM, Current or recent (<one month) smoker, HTN, HLP, family history of CAD, obesity. Course & Med Decision Making Course & Med Decision Making Pertinent Labs and Imaging studies reviewed. (See chart for details) 49-year-old male patient presents emergency department complaining of breakthrough pain. Vital signs reviewed. Patient has been seen before in this emergency department for the same presentation, was given 30 tablets of Percocet on 06/20/2020 then 10 days later was given another 10 more milligrams of Percocet on 1116. Patient has had negative work-ups for acute infectious or physical process in the emergency department. The patient is currently being treated by his primary care physicians for amitriptyline for his chronic pains. Patient did state tonight he called his primary care physicians who told him to come to the [facility] emergency department for pain control if he is having breakthrough pain. Patient's physical examination was unremarkable, his complaints of pain far outweighs his physical presentation. Patient was exhibiting drug-seeking behavior, when patient was asked about his last dose of narcotic pain medication given at [facility], patient questioned how I knew this information. Discussed with patient he will be given 1 tablet of Percocet for his pain, and then discharged to home, discussed with patient need to follow-up with his urology clinic for pain control as there recommendation and prescription of amitriptyline is not working for him. Patient's initial blood pressure read hypertensive, however ED rn field case manager staff rechecked vital signs showing a normotensive blood pressure at discharge, patient gave verbal understanding of discharge instructions, return to ER concerns, patient had no questions or concerns, patient discharged home without incident. Diagnosis chronic pains, drug-seeking behavior. Dragon Disclaimer Dragon Disclaimer This electronic medical record was generated, in whole or in part, using a voice recognition dictation system. Departure Departure: Impression: Primary Impression: Drug-seeking behavior Additional Impression: Chronic pain Disposition: 01 DC HOME SELF CARE/HOMELESS Condition: GOOD Referrals: LIZZ KENYON MD (PCP) Additional Instructions: Please follow-up through your urology clinic soon regarding your chronic pains. See your primary care doctor for chronic pain control. EMERGENCY DEPARTMENT GENERAL DISCHARGE INSTRUCTIONS Thank you for coming to [facility] (ED) today and trusting us with you care. We trust that you had a positivie experience in our Emergency Department. If you wish to speak to the department management, you may call the director at [phone]. YOUR FOLLOW UP INSTRUCTIONS ARE FOLLOWS: 1. Do you have a private Doctor? If you do not have a private doctor, please ask for a resource list of physicians or clinics that may be able to assist you with follow up care. 2. The Emergency Physician has interpreted your x-rays. The X-Ray specialist will also review them. If there is a change in the findings, you will be notified in 48 hours when at all possible. 3. A lab test or culture has been done, your results will be reviewed and you will be notified if you need a change in treatment. ADDITIONAL INSTRUCTIONS AND INFORMATION: 1. Your care today has been supervised by a physician who is specially trained in emergency care. Many problems require more than one evaluation for a complete diagnosis and treatment. We recommend that you schedule your follow up appointment as recommended to ensure complete treatment of you illness or injury. If you are unable to obtain follow up care and continue to have a problem, or if your condition worsens, we recommend that you return to the ED. 2. We are not able to safely determine your condition over the phone nor are we able to give sound medical advice over the phone. For these safety reasons, if you call for medical advice we will ask you to come to the ED for further evaluation. 3. If you have any questions regarding these discharge instructions please call the ED at [phone]. SAFETY INFORMATION: In the interest of safety, wellness, and injury prevention; we encourage you to wear your sealbelt, if you smoke; quite smoking, and we encourage family to use a protective helmet for bicycling and other sporting events that present an increased risk for head injury. IF YOUR SYMPTOMS WORSEN OR NEW SYMPTOMS DEVELOP, OR YOU HAVE CONCERNS ABOUT YOUR CONDITION; OR IF YOUR CONDITION WORSENS WHILE YOU ARE WAITING FOR YOUR FOLLOW UP APPOINTMENT; EITHER CONTACT YOUR PRIMARY CARE DOCTOR, THE PHYSICIAN WHOSE NAME AND NUMBER YOU WERE GIVEN, OR RETURN TO THE ED IMMEDIATELY. Problem Qualifiers Additional Impression: Chronic pain Chronic pain type: chronic pain syndrome Qualified Codes: G89.4 - Chronic pain syndrome JOHNNIE BOYD APRN Jul 25, 2020 19:59
[2020-07-25] MEDS ORDERED: oxyCODONE/APAP 10/325 1 TAB TABLET PO ONE (20:00)
[2020-07-25 20:30] VITALS: BP 152/85
== END 2020-07-25 20:26 | disposition home or self-care (01) ==
LOC: ER 19:35
DX: G89.4 Chronic pain syndrome (principal); Z76.5 Malingerer [conscious simulation]; J45.909 Unspecified asthma, uncomplicated; N50.812 Left testicular pain; R10.32 Left lower quadrant pain; E11.9 Type 2 diabetes mellitus without complications; I10 Essential (primary) hypertension; Z87.442 Personal history of urinary calculi; Z87.440 Personal history of urinary (tract) infections; Z90.89 Acquired absence of other organs; Z90.49 Acquired absence of other specified parts of digestive tract; Z88.6 Allergy status to analgesic agent; Z88.5 Allergy status to narcotic agent; Z88.1 Allergy status to other antibiotic agents; Z88.8 Allergy status to other drugs, medicaments and biological substances
CPT/HCPCS: 99283